=== PATIENT | female | born 1975 | race African-American/Black ===

== ENCOUNTER 2017-12-12 06:56 | Inpatient (IN) ==
[2017-12-10 13:09] LABS: Basophils % 0.8 % (0.0-0.8); Eosinophils # 0.3 10*3/uL (0.0-0.87); Eosinophils % 5.7 % (0.00-10.9); Hematocrit 28.8 VOL% (35.7-47.0); Hemoglobin 8.7 GM/DL (12.0-16.0); Immature Granulocytes % 0.2 %; Immature Granulocytes Absolute 0.01 #; Lymphocytes # 1.1 10*3/uL (1.4-4.0); Lymphocytes % 21.5 % (21.3-54.2); Mean Corpuscular HGB Conc 30.2 GM/DL (32-36); Mean Corpuscular Hemoglobin 27 PG (27-34); Mean Corpuscular Volume 88.9 FL (87-102); Mean Platelet Volume 9.7 FL (9.6-12.0); Monocytes # 0.5 10*3/uL (0.11-0.8); Monocytes % 8.8 % (1.7-12.7); Neutrophils # 3.3 10*3/uL (1.4-7.4); Platelet Count 329 T/CUMM (130-400); Red Blood Count 3.24 MC/CUMM (3.8-5.5); Red Cell Distribution Width 16.8 % (9.3-17.3); White Blood Count 5.2 T/CUMM (4-12)
[2017-12-10 13:47] LABS: Alanine Aminotransferase 18 U/L (13-56); Albumin 3.7 G/DL (3.4-5.0); Alkaline Phosphatase 73 U/L (45-117); Aspartate Amino Transferase 35 U/L (0-37); Bilirubin,Total < 0.39 MG/DL (0.2-1.0); Blood Urea Nitrogen 9 MG/DL (7-18); Calcium 9.3 MG/DL (8.5-10.1); Cholesterol 108 MG/DL (50-200); Glucose 274 MG/DL (74-106); HDL Cholesterol 33 MG/DL (40-60); Potassium 3.8 MMOL/L (3.5-5.1); Risk Ratio 3.27; Sodium 136 MMOL/L (136-145); Total Protein 7.9 G/DL (6.4-8.3); Triglycerides 152 MG/DL (2-150); VLDL CHOLESTEROL 30.4 MG/DL
[2017-12-10 14:35] LABS: HIV Antigen/Antibody Result Nonreactive (Nonreactive)
[2017-12-10 15:06] LABS: Apearance,Urine CLEAR (Clear); Bilirubin,Urine Negative (Negative); Blood, Urine Moderate mg/dL (Negative); Glucose,Urine (UA) 50 mg/dL (Negative); Ketones,Urine Negative (Negative); Mucus,Urine Occasional /LPF (Occasional); Nitrite,Urine Negative (Negative); Protein,Urine Negative; RBC,Urine 1 /HPF (0-4); Squamous Epithelial Cell,Urine Occasional /HPF (0-10); Urine Color Yellow (Yellow); Urine Specific Gravity 1.015 (1.001-1.035); Urine Urobilinogen < 2.0 EU/DL (0.2-1.0); WBC,Urine 1 /HPF (0-6)
[~2017-12-12 06:56] MED LIST: AMPICILLIN/SULBACTAM 3,000 MG in SODIUM CHLORIDE 0.9% 100 ML IV ONE
[2017-12-12] MEDS ORDERED: AMPICILLIN/SULBACTAM 3,000 MG VIAL ONE (07:52)
[2017-12-12] MEDS ORDERED: LACTATED RINGERS 1,000 ML IV SCH (08:00)
[2017-12-12] MEDS ORDERED: SODIUM CHLORIDE 0.9% 1,000 ML IV PRN (08:46)
[2017-12-12] MEDS ORDERED: ROPIVACAINE 0.5% 30 ML VIAL ONE (10:00)
[2017-12-12] MEDS ORDERED: PROPOFOL 200 MG/20 ML VIAL IV ONE (10:00)
[2017-12-12] MEDS ORDERED: FUROSEMIDE 20 MG/2 ML VIAL ONE (10:01)
[2017-12-12] MEDS ORDERED: ONDANSETRON 4 MG/2 ML VIAL ONE ×2 (10:01→10:04)
[2017-12-12] MEDS ORDERED: HYDROmorphone 2 MG/1 ML VIAL ONE (10:01)
[2017-12-12] MEDS ORDERED: DEXAMETHASONE 10 MG/1 ML VIAL ONE (10:01)
[2017-12-12] MEDS ORDERED: DESFLURANE 1 UNIT/15 MINUTE INH ONE (10:01)
[2017-12-12] MEDS ORDERED: ROCURONIUM 100 MG/10 ML VIAL IV ONE (10:02)
[2017-12-12] MEDS ORDERED: NEOSTIGMINE 10 MG/10 ML VIAL ONE (10:02)
[2017-12-12] MEDS ORDERED: SUCCINYLCHOLINE 200 MG/10 ML VIAL ONE (10:02)
[2017-12-12] MEDS ORDERED: GLYCOPYRROLATE 0.4 MG/2 ML VIAL ONE (10:02)
[2017-12-12] MEDS ORDERED: LACTATED RINGERS 2,000 ML IV ONE (10:02)
[2017-12-12] MEDS ORDERED: ACETAMINOPHEN 1,000 MG/100 ML VIAL IV ONE (10:02)
[2017-12-12] MEDS ORDERED: MORPHINE 10 MG/1 ML VIAL ONE (10:04)
[2017-12-12] MEDS: MORPHINE 10 MG/1 ML VIAL IV PRN ×2 (10:05→10:15)
[2017-12-12 10:14] LABS: Apearance,Urine CLOUDY (Clear); Bacteria,Urine Occasional /HPF (Few); Bilirubin,Urine Negative (Negative); Blood, Urine Large mg/dL (Negative); Glucose,Urine (UA) Negative (Negative); Ketones,Urine Negative (Negative); Mucus,Urine Occasional /LPF (Occasional); Nitrite,Urine Negative (Negative); Protein,Urine Negative; RBC,Urine 20 /HPF (0-4); Squamous Epithelial Cell,Urine Few /HPF (0-10); Urine Color Yellow (Yellow); Urine Specific Gravity 1.014 (1.001-1.035); Urine Urobilinogen < 2.0 EU/DL (0.2-1.0); WBC,Urine 1 /HPF (0-6)
[2017-12-12] MEDS ORDERED: ONDANSETRON 4 MG/2 ML VIAL IV PRN (10:36)
[2017-12-12] MEDS ORDERED: HYDROmorphone 2 MG/1 ML VIAL IV PRN (11:53)
[2017-12-12] MEDS ORDERED: ACETAMINOPHEN 325 MG TABLET PO PRN (11:53)
[2017-12-12] MEDS ORDERED: BISACODYL 10 MG SUPP RECTAL PRN (11:53)
[2017-12-12] MEDS ORDERED: BENZOCAINE/MENTHOL LOZENGE 18/BOX PO PRN (11:53)
[2017-12-12] MEDS ORDERED: MEPERIDINE 50 MG/1 ML VIAL IV PRN (12:07)
[2017-12-12] MEDS: ONDANSETRON 4 MG/2 ML VIAL IV PRN ×2 (12:28→22:39)
[2017-12-12] MEDS: LACTATED RINGERS 1,000 ML IV SCH ×2 (12:28→21:52)
[2017-12-12] MEDS: ceFAZolin 1,000 MG in SYRINGE 1 EACH IV SCH ×2 (15:33→23:34)
[2017-12-12 17:45] LABS: Basophils % 0.1 % (0.0-0.8); Hematocrit 35.7 VOL% (35.7-47.0); Hemoglobin 11.2 GM/DL (12.0-16.0); Immature Granulocytes % 0.6 %; Immature Granulocytes Absolute 0.08 #; Lymphocytes # 0.3 10*3/uL (1.4-4.0); Lymphocytes % 2.3 % (21.3-54.2); Mean Corpuscular HGB Conc 31.4 GM/DL (32-36); Mean Corpuscular Hemoglobin 27 PG (27-34); Mean Corpuscular Volume 85.2 FL (87-102); Mean Platelet Volume 9.3 FL (9.6-12.0); Monocytes # 0.4 10*3/uL (0.11-0.8); Monocytes % 2.5 % (1.7-12.7); Neutrophils # 13.7 10*3/uL (1.4-7.4); Neutrophils % 94.5 % (38.7-73.9); Platelet Count 286 T/CUMM (130-400); Red Blood Count 4.19 MC/CUMM (3.8-5.5); Red Cell Distribution Width 17.1 % (9.3-17.3); White Blood Count 14.5 T/CUMM (4-12)
[2017-12-12 19:21] LABS: Band Neutrophils 3 % (0-10); Lymphocytes 2 % (20-55); Segmented Neutrophils 95 % (50-85); Total Cells Counted 100
[2017-12-12 19:22] LABS: Anisocytosis 1+; Ovalocytes 1+; Platelet Estimate Normal
[2017-12-13 05:45] LABS: Hematocrit 33.7 VOL% (35.7-47.0); Hemoglobin 10.9 GM/DL (12.0-16.0); Immature Granulocytes % 0.5 %; Immature Granulocytes Absolute 0.07 #; Lymphocytes # 0.8 10*3/uL (1.4-4.0); Lymphocytes % 6.2 % (21.3-54.2); Mean Corpuscular HGB Conc 32.3 GM/DL (32-36); Mean Corpuscular Hemoglobin 27 PG (27-34); Mean Corpuscular Volume 82.4 FL (87-102); Mean Platelet Volume 9.5 FL (9.6-12.0); Monocytes % 7.6 % (1.7-12.7); NRBC # 0.02 10*3/uL; Neutrophils % 85.7 % (38.7-73.9); Platelet Count 280 T/CUMM (130-400); Red Blood Count 4.09 MC/CUMM (3.8-5.5); Red Cell Distribution Width 16.7 % (9.3-17.3); White Blood Count 12.9 T/CUMM (4-12)
[2017-12-13] MEDS: DOCUSATE SODIUM 100 MG CAPSULE PO PRN ×2 (07:49→20:47)
[2017-12-13] MEDS: METOCLOPRAMIDE 10 MG/2 ML VIAL IV SCH ×3 (07:50→23:34)
[2017-12-13] MEDS: IBUPROFEN 800 MG TABLET PO PRN ×2 (09:28→18:19)
[2017-12-13] MEDS: MAGNESIUM HYDROXIDE SUSP 30 ML UDCUP PO PRN (20:47)
[2017-12-14] MEDS: IBUPROFEN 800 MG TABLET PO PRN ×2 (00:58→22:51)
[2017-12-14] MEDS: METOCLOPRAMIDE 10 MG/2 ML VIAL IV SCH (07:46)
[2017-12-14] MEDS: DOCUSATE SODIUM 100 MG CAPSULE PO PRN ×2 (07:48→21:16)
[2017-12-14] MEDS ORDERED: MAGNESIUM CITRATE 300 ML BOTTLE PO ONE (07:49)
[2017-12-14] MEDS ORDERED: LISINOPRIL/HCTZ 20-25 MG TABLET PO SCH (10:00)
[2017-12-14] MEDS: amLODIPine 10 MG TABLET PO SCH (10:08)
[2017-12-14] MEDS: ATENOLOL 50 MG TABLET PO SCH (10:09)
[2017-12-14] MEDS: METOCLOPRAMIDE 10 MG TABLET PO SCH (16:13)
[2017-12-14] MEDS: MAGNESIUM HYDROXIDE SUSP 30 ML UDCUP PO PRN (21:16)
[2017-12-15] MEDS: METOCLOPRAMIDE 10 MG TABLET PO SCH (00:07)
[2017-12-15] MEDS: ATENOLOL 50 MG TABLET PO SCH (08:54)
[2017-12-15] MEDS: amLODIPine 10 MG TABLET PO SCH (08:54)
[2017-12-15 11:42] VITALS: BP 132/79
== END 2017-12-15 13:45 | disposition home or self-care (01) | DRG 742 ==
LOC: N.SDSINP 06:56 → N.OB 11:20
PROVIDERS: ADMIT Obstetrics & Gynecology; ATTEND Obstetrics & Gynecology